=== PATIENT | male | born 1970 | race Caucasian/White ===

== ENCOUNTER 2019-04-15 05:04 | Day surgery (SDC) | payer OTHER ==
[2019-04-11 12:31] VITALS: BMI 33.6
--- NOTE | 2019-04-15 11:34 | HP ---
[facility] - Chief Complaint Chief Complaint: left elbow pain - Past Medical History Allergies/Adverse Reactions: Allergies Allergy/AdvReac Type Severity Reaction Status Date / Time No Known Allergies Allergy Verified 08/18/14 21:30 - Current Medications Current Medications: Home Medications Medication Instructions Recorded Hydrocodone/Acetaminophen 1 each PO Q6H #30 tablet MDD 4 04/15/19 [Hydrocodone-Acetamin 5-325 mg] Satellite Physical Exam - Physical Examination General Appearance: Well Nourished, Well Developed, Alert & Oriented x3 ENT: Clear Lung: Normal air movement Extremities: Other (left elbow- + nathalie deformity, + swelling and ecchymosis, dec rom, nvi) Neurological: Intact, Alert, Oriented Satellite Impression/Plan - Impression/Plan Impression: left distal biceps tendon rupture Operative Procedure: left distal biceps tendon repair Date to be Performed: 04/15/19
[2019-04-15] MEDS ORDERED: ROPIVACAINE HCL 0.5% 30ML VIAL ONE (14:14)
[2019-04-15] MEDS ORDERED: MIDAZOLAM HCL 2 MG/2 ML SINGLE DOSE VIAL ONE ×2 (14:15)
[2019-04-15] MEDS ORDERED: LIDOCAINE HCL 2% (20ML MULTI-DOSE VIAL) ONE (14:49)
[2019-04-15] MEDS ORDERED: PROPOFOL 20 ML ONE ×2 (14:58)
[2019-04-15] MEDS ORDERED: ceFAZolin SODIUM 1 GM VIAL IVPB ONE (15:02)
--- NOTE | 2019-04-15 16:27 | OP ---
Operative Note - Note: Operative Date: 04/15/19 Pre-Operative Diagnosis: left distal biceps tendon rupture Operation: repair left distal biceps tendon, 2 incision technique Post-Operative Diagnosis: Same as Pre-op Surgeon: Rob Castillo Building Construction Inspector: Tyrel Pop Anesthesiologist/HAY STACKER: Theo Martino Anesthesia: Local, MAC Estimated Blood Loss (mls): 0 Drains, Volume Out (mls): 0 Blood Volume Replaced (mls): 0 Fluid Volume Replaced (mls): 700 Operative Report Dictated: Yes
[2019-04-15] MEDS ORDERED: ROCURONIUM BROMIDE 50 MG/5 ML SYRINGE ONE (16:51)
[2019-04-15 17:43] VITALS: BP 133/82; PULSE 79; TEMP 98.5
--- NOTE | 2019-04-16 08:17 | OP ---
DATE OF OPERATION: DATE OF DICTATION: 04/15/2019 PREOPERATIVE DIAGNOSIS: Left distal biceps tendon rupture. POSTOPERATIVE DIAGNOSIS: Left distal biceps tendon rupture. PROCEDURE PERFORMED: Left distal biceps tendon repair. SURGEON: Brad Mace M.D. ASSISTANTS: 1. JANETH De La Vega 2. Theo Martino CRNA ANESTHESIA: MAC anesthesia with left interscalene block. DRAINS: None. COMPLICATIONS: None. SPECIMENS: None. BLOOD LOSS: None. BLOOD GIVEN: None. FLUID REPLACEMENT: PlasmaLyte 700 mL. INDICATIONS: Patient is a 48-year-old male with the preoperative diagnosis of an acute left distal biceps tendon rupture. After understanding the potential risks, complications, alternatives and benefits of surgery versus nonsurgical treatment, the patient elected to undergo this procedure. DESCRIPTION PROCEDURE: The patient was brought to the operating room. A peripheral IV placed, and IV sedation given. IV Ancef 3 g was given. A left interscalene block was performed. He was placed into the beach-chair position with ample padding throughout, including a Styrofoam head rose grower. The right upper extremity was prepped and draped in a sterile fashion. The bony landmarks were marked out with a marking pen. A posterior portal was established. A diagnostic glenohumeral arthroscopy was performed. He was placed in the supine position. The left upper extremity was prepped and draped in sterile fashion. It was elevated and exsanguinated with an Esmarch bandage. The tourniquet was inflated to 250 mmHg. Next, an incision was marked out in the left elbow antecubital fossa crease with a marking pen. Incision was made with a number 15 blade. Subcutaneous hemostasis was achieved with bipolar cautery. Dissection was done with my index finger bluntly, as well as with Littler scissors, until I identified the posttraumatic inflammatory fluid within the biceps tendon sheath. I then followed this up the biceps tendon. I was able to retrieve and pull it distally. It was then mobilized with my finger and a small [place] elevator. Some inflammatory issue on the distal aspect was excised. I then used 2 FiberWire in a locking up and down stitch fashion. I was able to get fixation, pulling it distally with plenty of length. Next, in the standard fashion, I used a curved long hemostat. Found the biceps tendon sheath with my finger first. Passed the curved hemostat around the radius, taking great care to avoid the ulna and the ulnar periosteum. I then tented the skin, made a janelle with the marking pen at that spot, and made a longitudinal incision with a number 15 scalpel blade. Subcutaneous hemostasis was again achieved with bipolar cautery. Littler scissors were used to dissect down through the extensor tendon fascia, finding the curved Leonie. We then continued to separate the fibers of the muscle belly. Subperiosteal dissection was done with the periosteal elevator on the radius, exposing the radial styloid. The arm was then fully pronated, exposing more of the radial styloid. Weitlaner retractors were placed deep into the wound. A rongeur was used to remove the soft tissue off the radial styloid. Then I marked out the crater with a marking pen and made the crater with the Midas Rg/oval bur. I took off the sharp edges and irrigated it out. I had plenty of room for insertion of the tendon. Next, I used the nitinol wire. I passed it from dorsal to volar, and then passed it again from volar to dorsal with the FiberWire tails off the biceps tendon, passing it dorsally, and I could see there would be plenty of length. The anterior incision was then irrigated and washed out. 4-0 undyed Vicryl was used to close the deep dermal layer. Final skin reapproximation was done with a running subcuticular 4-0 Biosyn stitch. The area was then washed and dried, and covered with Steri-Strips. Next, our attention was turned back to the dorsal area. A 1.5-mm drill bit was used to make 2 drill holes on the roof of the radial styloid. The nitinol wire was used to capture the sutures and pass them through. I was able to easily pull the biceps tendon dorsally around the corner and into the radial styloid crater. The arm was taken out of full pronation. It was more neutral. The elbow was extended a bit. The pressure was taken off and I was able to easily pull the distal biceps tendon into the crater. Next, I tied the 2 tails to each other over the bony bridge. I tied the other 2 tails to each other over the bony bridge and then tied 2 of these tails together as an insurance stitch. They came down quite nicely. The area was irrigated and washed out. The FiberWire tails were cut. Closure was done with 2-0 Vicryl in both fascial layers. The deep dermal layer was closed with 2-0 Vicryl. Final skin reapproximation was done with a running subcuticular 4-0 V-Loc 90. The area was then washed and dried, covered with Steri-Strips, 4 x 4's front and back, Webril and a 5-inch Ortho-Glass posterior splint was applied with the elbow in 90 degrees and the forearm in neutral. Total operative time was about 1 hour. There were no complications during the case. The patient tolerated the procedure quite well and was brought to the ambulatory recovery room in stable condition. BRAD MACE M.D. [id number]
== END 2019-04-15 17:40 | disposition home or self-care (01) ==
LOC: JASU-SURG 05:04
PROVIDERS: ATTEND Orthopaedic Surgery
PROC: 0LM40ZZ Reattachment of Left Upper Arm Tendon, Open Approach (ICD-10-PCS; principal; 2019-04-15 14:30)
DX: M66.822 Spontaneous rupture of other tendons, left upper arm (principal)